=== PATIENT | male | born 1955 | race Caucasian/White ===

== ENCOUNTER 2016-08-21 15:43 | Inpatient (IN) | payer OTHER ==
[~2016-08-21] VITALS: Ht 182.9 cm; Wt 78.8 kg
[~2016-08-21 15:43] MED LIST: GLPZ5T PO; HYDR-4003 PO; LISI-567 PO; METF-496 PO; NICO1PAT5 TOPICAL; TERB30CR15 TOPICAL
[2016-08-21 15:46] VITALS: BP 135/80; PULSE 145; RESP 24; O2SAT 95
--- NOTE | 2016-08-21 16:30 | ED.REPORT ---
HPI-General Illness Date of Service Aug 21, 2016 ED Provider: Doc,Ed MD The patient is a 61 year old male with history of recurrent pneumonia, diabetes mellitus, and COPD, who presents to the emergency department complaining of flu- like symptoms. He has experienced a headache, back pain, fever, myalgias, productive cough. His symptoms have been worsening throughout the day. He took Tylenol at noon today with no relief. He denies abdominal pain, nausea, vomiting or diarrhea. Nursing Notes Stated Complaint: FEVER,DIZZY,SHORT OF BREATH Chief Complaint: FLU/Cold Symptoms Nursing Notes Reviewed: Yes Allergies: Coded Allergies: codeine (Verified Allergy, Severe, Nausea,Vomiting, 08/21/16) Scheduled Glipizide (Glipizide) 5 Mg Tablet 5 NG PO BID Lisinopril (Lisinopril) 20 Mg Tablet 20 MG PO DAILY Metformin ER (Metformin ER) 1,000 Mg Tablet 1,000 MG PO BID Terbinafine Cream (Terbinafine Cream) 30 Gm Cream..g. 1 APPLIC TOPICAL BID apply to upper chest, back, arm pits and forarms Scheduled PRN Hydrocodone-Acetaminophen 5-325 mg (Hydrocodone-Acetaminophen 5-325 mg) 1 Each Tablet 1 TABLET PO Q4H PRN PRN For Moderate Pain General Time Seen by MD: 16:30 Chief Complaint Flu-like illness Hx Obtained From: Patient Arrived By: Walk-in Sudden in Onset?: No Symptom Duration: Since onset Location: : Back: Head Quality: Aching, Painful Radiation: : Does not radiate Severity: Current: Moderate Severity: Maximum: Severe Recent Healthcare: No recent doctor visit, No recent hospitalization Similar Sx Previous: No Past Medical History Past Medical History Multiple episodes of pneumonia Hx of alcohol abuse Alcoholic pancreatitis Diabetes COPD Past Surgical History Cholecystectomy Smoking History Current Every Day Smoker Social History Hx of alcohol abuse, sober now Alcohol Use: In recovery Drug Use: Denies drug use Other Social History: Local resident Occupation lives with roommate Ambulatory Status Independent Review of Systems Full Review of Systems Constitutional: Reports: Chills, Fever Respiratory: Reports: Prod cough, clear GI: Denies: Abdominal pain, Diarrhea, Nausea, Vomiting Musculoskeletal: Reports: Back pain, Myalgia Complete sys rev & neg: except as marked. Physical Exam Vital Signs Vital Signs Date Time Temp Pulse Resp B/P Pulse Ox O2 Delivery O2 Flow Rate FiO2 08/21/16 18:03 38.1 121 24 129/70 95 Room Air 08/21/16 15:46 38.6 145 24 135/80 95 Room Air Initial VS: Reviewed Head / Eyes: Atraumatic, Normocephalic, PERRL ENT: Mucous membranes moist, Conjunctiva normal, No scleral icterus Neck: Supple, Non-tender, Full range of motion Cardiovascular: Regular rate & rhythm, Heart sounds normal, Intact distal pulses Abdomen / GI: Soft, Non-tender, No guarding, No rebound, No distention Extremities: Vascular intact, Neuro intact, No swelling, No tenderness Skin: Warm, Dry, No cyanosis Neurologic: Alert, Oriented, Nonfocal Psychiatric: Mood/affect normal, Behavior normal, Normal thought content General/Constitutional: Awake, Alert Distress / Hydration: Positive: Distress moderate Appearance / Presentation: Positive: Ill appearing/not toxic Neck: Supple, No meningismus, Full range of motion, No swelling, Non-tender, No masses Respiratory / Chest: Atraumatic, Breath sounds NL, Breath sounds = bilat, No respiratory distress, No rales, No rhonchi, No wheezing Interpretation & Diagnostics Lab Results Interpretation Result Diagram: 08/21/16 1707 08/21/16 1707 Test 08/21/16 17:07 08/21/16 17:51 White Blood Count 17.6th/mm3 (3.8-10.1) Red Blood Count 4.42mil/mm3 (4.40-5.80) Hemoglobin 14.5g/dL (13.8-17.2) Hematocrit 41.6% (41.0-50.0) Mean Corpuscular Volume 94.1fL (81-100) Mean Corpuscular Hemoglobin 32.8pg (27.0-35.0) Mean Corpuscular Hemoglobin Concent 34.9% (32.0-37.0) Red Cell Distribution Width 13.0% (12.3-15.4) Platelet Count 169bil/L (150-400) Neutrophils (%) (Auto) 87.4% (40-74) Lymphocytes (%) (Auto) 4.7% (14-46) Monocytes (%) (Auto) 7.4% (4-12) Eosinophils (%) (Auto) 0.1% (0-5) Basophils (%) (Auto) 0.1% (0-3) Sodium Level 134mEq/L (134-144) Potassium Level 4.0mEq/L (3.5-5.2) Chloride Level 97mEq/L (97-108) Carbon Dioxide Level 21mmol/L (18-29) Blood Urea Nitrogen 14mg/dL (8-27) Creatinine 0.64mg/dL (0.76-1.27) Estimat Glomerular Filtration Rate 134mL/min (>59) Glucose Level 109mg/dL (60-99) Lactic Acid Level 1.0mmol/L (0.4-2.0) Calcium Level 8.8mg/dL (8.5-10.1) Magnesium Level 1.7mg/dL (1.6-2.6) Total Bilirubin 0.3mg/dL (0.0-1.2) Aspartate Amino Transf (AST/SGOT) 23U/L (0-50) Alanine Aminotransferase (ALT/SGPT) 12U/L (0-44) Alkaline Phosphatase 53U/L (25-160) Troponin T < 0.010ug/L (0.0-0.011) Total Protein 6.6g/dL (6.4-8.4) Albumin 4.2g/dL (3.4-5.0) Procalcitonin 0.15ng/mL (0.00-0.08) Acetaminophen Level < 15.0ug/mL Rx (10-25) Urine Color Yellow (YELLOW) Urine Appearance Clear (CLEAR,HAZY) Urine pH 5.5 (5.0-8.0) Urine Specific [place] 1.025 (1.003-1.035) Urine Protein Negativemg/dL (NEG,TRACE) Urine Glucose (UA) Negativemg/dL (NEGATIVE) Urine Ketones 15mg/dL (NEGATIVE) Urine Occult Blood Trace (NEGATIVE) Urine Nitrite Negative (NEGATIVE) Urine Bilirubin Negative (NEGATIVE) Urine Urobilinogen Normalmg/dL (NORMAL) Urine Leukocyte Esterase Negative (NEGATIVE) Urine RBC 0-2/hpf (0-2) Urine WBC 0-5/hpf (0-5) Urine Epithelial Cells Few/hpf (NONE-MOD) Urine Crystals None seen (NONE SEEN) Urine Bacteria Few/hpf (NONE-FEW) Urine Hyaline Casts None/lpf (NONE) Urine Granular Casts None seen (NONE SEEN) Urine Waxy Casts None seen (NONE SEEN) Urine Red Blood Cell Casts None seen (NONE SEEN) Urine White Blood Cell Casts None seen (NONE SEEN) Urine Mucus Present (None Seen) Urine Trichomonas None seen (NONE SEEN) Urine Yeast None (NONE SEEN) Urinalysis Comment None Urine Culture Reflexed Not indicated Urine Legionella pneumophilia Ag Negative (Negative) ECG Interpretation ECG Interpretation: Sinus tachycardia with a PAC Rate of 130 Time: 17:11 Interpreted by: ED physician X-Ray Chest Interpretation Chest Xray Interpretation: IMPRESSION: Small left lower lobe pneumonia. Dictated by: Savage Melo M.D. on 08/21/2016 at 17:53 Interpretation / Wet Read by: Interpret - Radiologist Re-Eval/Medical Decision Med Decision/Clinical Course Community-acquired pneumonia with sepsis. Will be admitted. Source of Hx: Old records Time of Eval: 18:04 Re-Evaluation/Progress Note: Rechecked the patient. Discussed plan for admission. All questions were addressed. Consultation : Referral / Consult Name: Karina Lubin MD Consulted With: Hospitalist Requested Call at: 18:05 Call Returned at: 18:39 Brick Setter: Will see patient, Agrees with eval, Agrees with plan, Accepts admit Counseled Regarding: Diagnosis, Lab results, Need for admission Discharge & Departure Primary Impression: Sepsis Sepsis type: sepsis due to unspecified organism Qualified Code: A41.9 - Sepsis, unspecified organism Additional Impression: Pneumonia Pneumonia type: due to unspecified organism Laterality: left Lung location : lower lobe of lung Qualified Code: J18.9 - Pneumonia, unspecified organism Disposition: ADMITTED TO HOSPITAL Discharge Condition All VS Reviewed: Yes Condition: Stable Referrals: NOPCP (PCP) Dionneibluís Attestation Portions of this note were transcribed by Shelly Galloway. I, Dr. Zmaudio personally performed the history, physical exam and medical decision-making; I reviewed and confirmed the accuracy of the information in the transcribed note. Signed by: Eren Lanier, 08/21/2016 and 1845. Meño Zamudio DO Aug 21, 2016 16:30 Shelly Galloway Aug 21, 2016 16:38
[2016-08-21] MEDS ORDERED: 0.9% Sodium Chloride 1,000 ML IV ONE ×2 (16:39→16:40)
[2016-08-21] MEDS ORDERED: Ketorolac 15 mg/mL Inj IVPUSH ONE (16:40)
[2016-08-21] MEDS ORDERED: Promethazine Inj 25 MG in Dextrose 5%-Pha MIX 50 ML IV ONE (16:40)
[2016-08-21 17:21] LABS: BASOPHILS % (AUTO) 0.1 % (0-3); EOSINOPHILS % (AUTO) 0.1 % (0-5); MONOCYTES % (AUTO) 7.4 % (4-12); Mean Corpuscular Hemoglobin 32.8 pg (27.0-35.0); Mean Corpuscular Volume 94.1 fL (81-100); NEUTROPHILS % (AUTO) 87.4 % (40-74); Platelet Count 169 bil/L (150-400)
[2016-08-21 17:55] LABS: TROPONIN T < 0.010 ug/L (0.0-0.011)
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
[2016-08-21 18:01] LABS: Magnesium 1.7 mg/dL (1.6-2.6)
[2016-08-21 18:03] VITALS: BP 129/70; PULSE 121; RESP 24; O2SAT 95
[2016-08-21 18:03] LABS: APPEARANCE,URINE CLEAR (CLEAR,HAZY); COLOR,URINE YELLOW (YELLOW); OCCULT BLOOD,URINE TRACE (NEGATIVE); PH,URINE 5.5 (5.0-8.0); UROBILINOGEN,URINE NORMAL (NORMAL)
[2016-08-21] MEDS ORDERED: 0.9% Sodium Chloride 500 ML IV ONE (18:05)
[2016-08-21] MEDS ORDERED: 0.9% Sodium Chloride 1,000 ML IV SCH ×3 (18:05→20:13)
[2016-08-21] MEDS ORDERED: Azithromycin Inj 500 MG in Dextrose 5% w/Vial Mate 250 ML IV ONE (18:05)
[2016-08-21] MEDS ORDERED: cefTRIAXone Inj 2,000 MG in Dextrose 5% Minibag Plus 50 ML IV ONE (18:05)
[2016-08-21] MEDS ORDERED: Alum-Mag Hydrox-Simeth 30 mL Suspension PO PRN (18:45)
[2016-08-21] MEDS ORDERED: Ondansetron 2 mg/mL 2 mL Inj IVPUSH PRN (18:45)
[2016-08-21 20:03] VITALS: BP 101/63; PULSE 115; RESP 18; O2SAT 92
--- NOTE | 2016-08-21 20:13 | PCM.HPMED ---
Subjective Date of Service Aug 21, 2016 Primary Provider: Admitting Physician: Karina Lubin MD Primary Care Physician: Nopcp Attending Physician: Karina Lubin MD Chief Complaint: myalgia cough HISTORY was OBTAINED FROM PATIENT / MEDITECH NOTES History of present illness 61-year-old male, headache/diffuse muscle ache/fever/dizziness/non-productive cough started 2-3 days ago. Tylenol at home. No vomiting/nausea no diarrhea. currently really cold and fatigued. In ER weight 80.5 pounds, 38.6, heart rate sinus 145, 135/80, 95% on room air, normal saline 2 L, azithromycin Rocephin ketorolac promethazine Review of Systems - none of the following - sick contact / wt change/ / cp / acid reflux / n/v/diarrhea / bleeding/bruising / leg swelling / change in voiding // rash ambulates FAMILY HX DM SOCIAL HX tobacco use-chewing ongoing, indicates stopped smoking 1-2ppd months ago, alcohol abuse history MEDICATIONS Glipizide (Glipizide) 5 Mg Tablet 5 NG PO BID Lisinopril (Lisinopril) 20 Mg Tablet 20 MG PO DAILY Metformin ER (Metformin ER) 1,000 Mg Tablet 1,000 MG PO BID Terbinafine Cream (Terbinafine Cream) 30 Gm Cream..g. 1 APPLIC TOPICAL BID apply to upper chest, back, arm pits and forarms Scheduled PRN Hydrocodone-Acetaminophen 5-325 mg (Hydrocodone-Acetaminophen 5-325 mg) 1 Each Tablet 1 TABLET PO Q4H PRN PRN For Moderate Pain Nicotine 14 mg/24 hr Patch (Nicotine 14 mg/24 hr Patch) 1 Each Patch.td24 1 PATCH TOPICAL DAILY PRN PRN For Tobacco Withdrawal Past Medical/Surgical HX CAP multiple, treated with Levaquin last inpatient service 11/2015 COPD Sinus congestion Diabetes type II Hypertension Alcoholic pancreatitis Allergies Coded Allergies: codeine (Verified Allergy, Severe, Nausea,Vomiting, 08/21/16) PMH Social History Hx Alcohol Use: No Hx Substance Use: No Hx Tobacco Use: Yes (he has a long history of smoking one to 2 packs a day for 40 years) Smoking Status: Current Every Day Smoker Exam Vital Signs Vital Sign - Last Date Time Temp Pulse Resp B/P Pulse Ox O2 Delivery O2 Flow Rate FiO2 2/16/17 19:37 38.1 121 24 129/70 95 Room Air Lab and Diagnostics Labs Exam on admission room air NAD easily awakened fatigued mood affect WNL shivering NC/AT no icterus no injected eyes EOMI PERRL /no pharyngeal lesions/ no oral lesions / hearing intact/ no bilateral max-frontal sinus tenderness Supple neck left wheeze, right diminished equal chest rise / no accessory muscle use / speaks in full sentences / no rrw RRR S1 S2 / no mrg / 2+ radial pulses Soft nt nd + BS no hepatosplenomegaly No edema no cyanosis no ecchymosis of lower extremities No rash / no jaundice MATOS symmetrical facies EKG [address] sinus tach PAC no ST chnages Trop 0.01 at 5 PM PCR respiratory influenza B positive Blood culture pending Strep legionnaires pending Left shift 87.4% procalcitonin 0.15 lactic acid normal UA negative nitrite negative leukocyte esterase negative yeast Tylenol levels undetectable LFT normal Imaging Chest Xray Interpretation: IMPRESSION: Small left lower lobe pneumonia. Result Diagram: 08/21/167 08/21/16 1707 Assessment & Plan Active issues and reason for admission Sepsis due to influenzaB, treating as secondary infection community-acquired Left lower lobe pneumonia, with sinus tachycardia/fever/leukocytosis/myalgia -- tamiflu Rocephin azithromycin DuoNeb's oxygen when necessary / IVF -- pending strep urine, legionnaire's urine, blood culture, sputum culture Chronic issues known prior to admission, present on admission CAP multiple, treated with Levaquin last inpatient service 11/2015 COPD Sinus congestion Diabetes type II Hypertension Alcoholic pancreatitis DM --hold home oral DM meds, SSI --nicotine patch --ocean spray prn Diet DM DVT prophylaxis lovenox scd ambulate Code full Disposition inpt Assessment and plan were discussed with patient Karina Lubin MD Aug 21, 2016 20:13
[2016-08-21] MEDS ORDERED: Albuterol 2.5 mg/3 mL Inhalation Solution NEB PRN (20:15)
[2016-08-21] MEDS ORDERED: Glucose 40% Oral Gel 15 Gm Tube PO PRN (20:15)
[2016-08-21] MEDS: Albuterol 2.5 mg/3 mL Inhalation Solution NEB SCH (20:30)
--- NOTE | 2016-08-21 20:55 | NUR ---
Admission Pt is has a bad OROURKE. Called MD for pain medication. Received orders. Afebrile. Ate dinner. Up OOB without assistance to void. SKin intact. Lungs are clear to decreased with scattered rhonchi. Telemetry in place. Sinus tach 112BPM Oriented to room/call light Care ongoing
[2016-08-21 21:00] VITALS: PULSE 110; RESP 20; O2SAT 93
[2016-08-21] MEDS: Insulin LISPRO 300 Unit/3 mL Inj SUBQ SCH (22:00)
[2016-08-21 22:47] VITALS: BP 144/80; PULSE 130; RESP 28; O2SAT 91
[2016-08-21] MEDS: 0.9% Sodium Chloride 1,000 ML IV SCH (23:10)
[2016-08-22] VITALS (12 sets, daily range): BP systolic 107–138; BP diastolic 59–73; PULSE 96–125; RESP 17–26; O2SAT 93–96
--- NOTE | 2016-08-22 00:07 | NUR ---
MED REC NOT COMPLETE Pt takes lantus. He does not state a PCP. He does not state a pharmacy where he has this fills. Please follow up in the AM. Home Lantus pen is in the pharmacy.
[2016-08-22] MEDS: Albuterol 2.5 mg/3 mL Inhalation Solution NEB SCH ×6 (00:30→19:59)
--- NOTE | 2016-08-22 00:46 | NUR ---
Respiratory Pt is refusing treatments stating that he just want to sleep. will attempt again in the morning
[2016-08-22] MEDS: HYDROcodone-APAP 5-325 mg Tablet PO PRN ×4 (03:09→19:43)
[2016-08-22 06:31] LABS: BASOPHILS % (AUTO) 0.1 % (0-3); EOSINOPHILS % (AUTO) 0 % (0-5); Mean Corpuscular Hemoglobin 32.3 pg (27.0-35.0); Mean Corpuscular Volume 96.3 fL (81-100)
[2016-08-22 06:38] LABS: MONOCYTES % (AUTO) 3.5 % (4-12); NEUTROPHILS % (AUTO) 85.1 % (40-74); Platelet Count 156 bil/L (150-400)
[2016-08-22 06:46] LABS: Magnesium 1.9 mg/dL (1.6-2.6)
[2016-08-22] MEDS ORDERED: IPRA4AER PO (07:17)
[2016-08-22] MEDS ORDERED: INSU100I13 SUBQ (07:17)
[2016-08-22] MEDS: cefTRIAXone Inj 2,000 MG in Dextrose 5% Minibag Plus 50 ML IV SCH (08:10)
[2016-08-22] MEDS: Insulin LISPRO 300 Unit/3 mL Inj SUBQ SCH (08:18)
[2016-08-22] MEDS: 0.9% Sodium Chloride 1,000 ML IV SCH ×2 (09:10→19:42)
--- NOTE | 2016-08-22 10:38 | NUR ---
Social Work: Screening Data: Pt is a 61 y/o male admitted for sepsis, pneumonia. Pt's PCP is not listed, pt's insurance is coordinated care. EMR reviewed. Readmit score not listed. No d/c planning needs at this time. RESEARCH PROGRAM MANAGER will continue to follow if needs arise. Assessment: Pt who is independent at baseline. Plan: Pt will d/c home via POV when medically stable. No d/c planning needs at this time. RESEARCH PROGRAM MANAGER will continue to follow if needs arise. JENNIFER Delacruz
--- NOTE | 2016-08-22 18:01 | PCM.PNMED ---
Subjective Date of Service Aug 22, 2016 Subjective 61-year-old male with diabetes, hypertension, COPD, and multiple prior community -acquired pneumonia presents with headache/diffuse muscle ache/fever/dizziness/ non-productive cough started 2-3 days ago. He is found to have influenza B, a left lower lobe pneumonia and was septic on admission. Patient admitted overnight, no acute events. This morning he states that he had generally feeling unwell, he is coughing but not bringing much up. He is having a headache and mild shortness of breath, no chest pain outside of coughing, no abdominal pain. Exam Vital Signs Vital Sign - Last Date Time Temp Pulse Resp B/P Pulse Ox O2 Delivery O2 Flow Rate FiO2 08/22/16 17:16 36.9 109 18 138/67 95 Room Air Intake and Output 08/21/16 08/21/16 08/22/16 Cumulative From/Thru 15:00 23:00 07:00 08/21/16 15:46 - 08/22/16 06:08 Intake Total 999 ml 1061 ml 2060 ml Output Total 500 ml 500 ml Balance 999 ml 561 ml 1560 ml Intake Oral 200 ml 200 ml IV Total 999 ml 861 ml 1860 ml Output Urine Total 500 ml 500 ml # Bowel Movements 0 0 Exam General: No acute distress, well-developed, well-nourished, appropriately interactive HEENT: Normocephalic, atraumatic. External ears without defect. Pupils equal, round, and reactive to light and accommodation. Anicteric sclerae, moist conjunctivae, prominent upper eyelid. Oropharynx free of erythema with moist mucosa. Neck: Supple with full range of motion. No jugular venous distension. No lymphadenopathy or thyromegaly. Cardiovascular: Regular rate and rhythm with no murmurs, rubs, or gallops appreciated Pulmonary: Diffuse wheezes and crackles bilaterally, more prominent at the bases. Normal respiratory effort with no use of accessory muscles. Abdomen: Bowel tones present. Soft, nontender, nondistended. No hepatosplenomegaly or masses appreciated. Extremities: No clubbing, cyanosis, edema, or lymphadenopathy appreciated. Skin: Normal temperature, turgor, and texture; no rash, ulcers, or subcutaneous nodules appreciated. Neurological: Cranial nerves grossly intact. Normal muscle strength, tone, and bulk. No known gait impairment. Psychiatric: Normal mood and affect. Alert and oriented to person, place, and time. IVs and Medications IV Fluids 100 mL/ hour of NS Lab and Diagnostics Result Diagram: 08/22/1660908/22/16609 X-Rays, CTs and MRIs X-RAY CHEST, TWO VIEWS ([id number]) IMPRESSION: Small left lower lobe pneumonia. Dictated by: Savage Melo M.D. on 08/21/2016 at 17:53 Assessment & Plan 61-year-old male with diabetes, hypertension, COPD, and multiple prior community -acquired pneumonia presents with headache/diffuse muscle ache/fever/dizziness/ non-productive cough started 2-3 days ago. He is found to have influenza B, a left lower lobe pneumonia and was septic on admission. Hospital day 2 1. Sepsis due to community-acquired Left lower lobe pneumonia, present on admission, active -- On admission patient tachycardic up to 145 with a respiratory rate of 24, and WBC 17.6 -- The left lower lobe pneumonia identified on chest x-ray -- Patient treated with IV fluids, continuing normal saline at a rate of 100 mL/ h -- Broad-spectrum antibiotics initiated, IV Rocephin and azithromycin. -- Urine strep and Legionella negative -- blood and sputum cultures pending 2. Influenza B, present on admission, active -- Patient placed in isolation -- Tamiflu -- DuoNebs, oxygen when necessary 3. Left lower lobe pneumonia, present on admission, active -- Treated with above antibiotics -- Propulsid tone and in the morning, if this remains low we can likely discontinue antibiotics as patient's symptoms might be more related to the flu than the pneumonia. Chronic issues known prior to admission, present on admission CAP multiple, treated with Levaquin last inpatient service 11/2015. Patient has worked and migraines, around concrete dust, and has been a journeyman painter in the past COPD Sinus congestion --ocean spray prn Diabetes type II -- Restart home diabetes regimen with Lantus at a slightly lower dose of 15 and 20 units in the evening. Continue glipizide and metformin twice daily Hypertension Alcoholic pancreatitis Tobacco use --nicotine patch Diet DM DVT prophylaxis lovenox scd ambulate Code full Disposition inpt Pain Evaluation: Adequate Pain Control GI Prophylaxis: Not indicated VTE Prophylaxis: Sub-Q Enoxaparin Resuscitation Status: CPR: Attempt Resuscitation Attending Statement The patient was seen and examined together with Dr. Nolan on 08-22-16 and I agree with the history, exam and plan as outlined in the note above. Nita Nolan DO Aug 22, 2016 18:01 Eda Villaseñor MD Aug 23, 2016 07:58
[2016-08-22] MEDS: metFORMIN ER 500 mg ER24 Tablet PO SCH (18:38)
[2016-08-22] MEDS: guaiFENesin 600 mg ER12 Tablet PO SCH (19:43)
[2016-08-22] MEDS: Insulin GLARgine 100 Unit/mL Syringe SUBQ SCH (19:56)
[2016-08-22] MEDS: Azithromycin Inj 500 MG in Dextrose 5% w/Vial Mate 250 ML IV SCH (19:57)
[2016-08-22] MEDS: Insulin LISPRO Low-Dose Scale SUBQ PRN (19:57)
[2016-08-23] VITALS (13 sets, daily range): BP systolic 120–146; BP diastolic 61–77; PULSE 73–111; RESP 18–20; O2SAT 92–99
[2016-08-23] MEDS: Albuterol 2.5 mg/3 mL Inhalation Solution NEB SCH ×6 (00:34→20:12)
[2016-08-23] MEDS: HYDROcodone-APAP 5-325 mg Tablet PO PRN ×5 (02:23→20:57)
[2016-08-23] MEDS: 0.9% Sodium Chloride 1,000 ML IV SCH (06:33)
[2016-08-23 07:49] LABS: BASOPHILS % (AUTO) 0.2 % (0-3); EOSINOPHILS % (AUTO) 0.1 % (0-5); MONOCYTES % (AUTO) 4.8 % (4-12); Mean Corpuscular Hemoglobin 32.8 pg (27.0-35.0); Mean Corpuscular Volume 96.5 fL (81-100); Platelet Count 148 bil/L (150-400)
[2016-08-23] MEDS: cefTRIAXone Inj 2,000 MG in Dextrose 5% Minibag Plus 50 ML IV SCH (08:16)
[2016-08-23] MEDS: guaiFENesin 600 mg ER12 Tablet PO SCH ×2 (08:17→21:02)
[2016-08-23] MEDS: metFORMIN ER 500 mg ER24 Tablet PO SCH ×2 (08:17→17:03)
--- NOTE | 2016-08-23 11:54 | NUR ---
Pain: Patient complained of OROURKE and chest pain from cough 6/10 on pain scale. [place] and oxycodone administered per patient request. Will continue to monitor pain level.
--- NOTE | 2016-08-23 17:22 | NUR ---
Activity: Patient ambulated in hallway. Denies shortness of breath, dizzy or lightheadedness.
--- NOTE | 2016-08-23 19:03 | PCM.PNMED ---
Subjective Date of Service Aug 23, 2016 Subjective 61-year-old male with diabetes, hypertension, COPD, and multiple prior community -acquired pneumonia presents with headache/diffuse muscle ache/fever/dizziness/ non-productive cough started 2-3 days ago. He is found to have influenza B, a left lower lobe pneumonia and was septic on admission. Patient did well overnight with no acute events. This morning he reports feeling better. He is still having some shortness of breath but it is improved. He is coughing some and finally able to get some phlegm up. He is taking pain medication that is helping with his headache as well. No abdominal pain, chest pain. Exam Vital Signs Vital Sign - Last Date Time Temp Pulse Resp B/P Pulse Ox O2 Delivery O2 Flow Rate FiO2 08/23/16 06:06 111 08/23/16 05:26 37.1 18 120/61 94 Room Air Intake and Output 08/22/16 08/22/16 08/23/16 Cumulative From/Thru 15:00 23:00 07:00 08/21/16 15:46 - 08/23/16 06:36 Intake Total 2265 ml 1769 ml 6094 ml Output Total 1625 ml 1575 ml 3700 ml Balance 640 ml 194 ml 2394 ml Intake Oral 1040 ml 420 ml 1660 ml IV Total 1225 ml 1349 ml 4434 ml Output Urine Total 1625 ml 1575 ml 3700 ml # Bowel Movements 0 0 0 Exam General: No acute distress, well-developed, well-nourished, appropriately interactive HEENT: Normocephalic, atraumatic. External ears without defect. Pupils equal, round, and reactive to light and accommodation. Anicteric sclerae, moist conjunctivae, prominent upper eyelid. Oropharynx free of erythema with moist mucosa. Neck: Supple with full range of motion. No jugular venous distension. No lymphadenopathy or thyromegaly. Cardiovascular: Regular rate and rhythm with no murmurs, rubs, or gallops appreciated Pulmonary: Diffuse crackles at the bases bilaterally, more prominent on the left. Normal respiratory effort with no use of accessory muscles. Abdomen: Bowel tones present. Soft, nontender, nondistended. No hepatosplenomegaly or masses appreciated. Extremities: No clubbing, cyanosis, edema, or lymphadenopathy appreciated. Skin: Normal temperature, turgor, and texture; no rash, ulcers, or subcutaneous nodules appreciated. Neurological: Cranial nerves grossly intact. Normal muscle strength, tone, and bulk. No known gait impairment. Psychiatric: Normal mood and affect. Alert and oriented to person, place, and time. Lab and Diagnostics Result Diagram: 08/22/1660908/22/16 0610 X-Rays, CTs and MRIs X-RAY CHEST, TWO VIEWS ([id number]) IMPRESSION: Small left lower lobe pneumonia. Dictated by: Savage Melo M.D. on 08/21/2016 at 17:53 Assessment & Plan 61-year-old male with diabetes, hypertension, COPD, and multiple prior community -acquired pneumonia presents with headache/diffuse muscle ache/fever/dizziness/ non-productive cough started 2-3 days ago. He is found to have influenza B, a left lower lobe pneumonia and was septic on admission. Hospital day 3 1. Sepsis due to community-acquired Left lower lobe pneumonia and influenza B, present on admission, active -- On admission patient tachycardic up to 145 with a respiratory rate of 24, and WBC 17.6 -- The left lower lobe pneumonia identified on chest x-ray -- Patient treated with IV fluids, discontinued today -- Broad-spectrum antibiotics initiated, IV Rocephin and azithromycin. -- Urine strep and Legionella negative -- blood cultures show no growth after 2 days -- sputum culture shows light normal aniceto 2. Influenza B, present on admission, active -- Patient placed in isolation -- Tamiflu 3. Left lower lobe pneumonia, present on admission, active -- Treated with above antibiotics -- DuoNebs, oxygen when necessary -- Again, Procalcitonin in the morning, if this remains low we can likely discontinue antibiotics as patient's symptoms might be more related to the flu than the pneumonia. -- Chest x-ray in the morning Chronic issues known prior to admission, present on admission CAP multiple, treated with Levaquin last inpatient service 11/2015. 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 Continue glipizide and metformin twice daily Hypertension Alcoholic pancreatitis Tobacco use -- nicotine patch -- Patient counseled on importance to quit smoking, he verbalizes understanding that it will be important to his overall lung health Diet DM DVT prophylaxis lovenox scd ambulate Code full Disposition inpt GI Prophylaxis: Not indicated VTE Prophylaxis: Sub-Q Enoxaparin Resuscitation Status: CPR: Attempt Resuscitation Attending Statement The patient was seen and examined together with Dr. Nolan on 08-23-16 and I agree with the history, exam and plan as outlined in the note above. Nita Nolan DO Aug 23, 2016 07:23 Eda Villaseñor MD Aug 24, 2016 16:42
[2016-08-23] MEDS: Insulin GLARgine 100 Unit/mL Syringe SUBQ SCH (20:57)
[2016-08-23] MEDS: Azithromycin Inj 500 MG in Dextrose 5% w/Vial Mate 250 ML IV SCH (20:58)
[2016-08-24] MEDS: Albuterol 2.5 mg/3 mL Inhalation Solution NEB SCH ×3 (00:30→07:38)
[2016-08-24 05:42] VITALS: BP 128/85; PULSE 111; RESP 18; O2SAT 96
[2016-08-24] MEDS: HYDROcodone-APAP 5-325 mg Tablet PO PRN (05:46)
[2016-08-24 07:17] LABS: BASOPHILS % (AUTO) 0.2 % (0-3); EOSINOPHILS % (AUTO) 1.3 % (0-5); MONOCYTES % (AUTO) 8.3 % (4-12); Mean Corpuscular Hemoglobin 32.7 pg (27.0-35.0); Mean Corpuscular Volume 94.6 fL (81-100); Platelet Count 167 bil/L (150-400)
[2016-08-24 07:38] VITALS: PULSE 93; RESP 20; O2SAT 92
[2016-08-24] MEDS: metFORMIN ER 500 mg ER24 Tablet PO SCH (08:23)
[2016-08-24] MEDS: guaiFENesin 600 mg ER12 Tablet PO SCH (08:24)
[2016-08-24] MEDS: Insulin LISPRO Low-Dose Scale SUBQ PRN (08:29)
[2016-08-24] MEDS: cefTRIAXone Inj 2,000 MG in Dextrose 5% Minibag Plus 50 ML IV SCH (08:31)
--- NOTE | 2016-08-24 10:39 | PCM.DIMED ---
Kraol Huber DO 08/24/16 1039: Discharge Instructions Date of Service Aug 24, 2016 Dates of Hospitalization Aug 21, 2016 at 18:53 Discharge Diagnosis Discharge Diagnosis Sepsis due to community-acquired left lower lobe pneumonia and influenza B, present on admission. Resolved. Influenza B, present on admission. Treating. Left lower lobe pneumonia, present on admission. Treating. Chronic obstructive pulmonary disease. Stable. Diabetes mellitus type II, insulin using. Stable. Hypertension, chronic. Stable. Tobacco use disorder, chronic. Stable. . Medication Instructions New medications: Tamiflu 75 mg twice a day 2 days. Amoxicillin 500 mg 3 times a day 2 days. Hydrocodone 5-325 mg every 4 hours as needed for headache. Continued medications: Albuterol inhaler 1-2 puffs every 4 hours as needed for shortness of breath. Glipizide 5 mg twice a day. Lantus 20 units subcutaneous daily at bedtime. Lisinopril 20 mg daily. Metformin 1000 mg twice a day. Terbinafine cream apply topically twice a day for tinea versicolor. . Diet Heart Healthy, Diabetic Call your provider Fever or Chills, Shortness of breath, Vomitting, Excessive diarrhea Patient Instructions Follow-up plan Please follow-up at the [facility], [place], operated by [facility] with your primary care physician, Dr. Heard, in the next 1-2 weeks regarding your recent hospitalization for influenza infection and pneumonia. You may need a repeat chest x-ray in 6 weeks at the discretion of your primary care physician to make sure that your pneumonia has resolved. . [facility]up Provider: [facility] Follow-up with PCP in: 1 week Eda Villaseñor MD 08/25/16 0851: Discharge Instructions Attending's Statement The patient was seen and examined together with Dr. Huber on 08-24-16 and I agree with the history, exam and plan as outlined in the note above. Karol Huber DO Aug 24, 2016 10:39 Eda Villaseñor MD Aug 25, 2016 08:51
[2016-08-24] MEDS ORDERED: OSLT75C PO (10:44)
[2016-08-24] MEDS ORDERED: AMOX500C2 PO (10:49)
[2016-08-24] MEDS ORDERED: HYDR-4003 PO (10:59)
--- NOTE | 2016-08-24 11:52 | NUR ---
Discharge IV discontinued fully intact. Discharge instructions explained to patient who verbalizes understanding and agrees to plan of care. All personal belongings given to patient. Patient ambulated off of unit with friend.
--- NOTE | 2016-08-24 13:07 | PCM.DC.MED ---
Discharge Summary Date of Service Aug 24, 2016 Dates of Hospitalization Date of Hospital Admission Aug 21, 2016 at 18:53 Date of Discharge: Aug 24, 2016 Providers: Admitting Physician: Karina Lubin MD Primary Care Physician: Mj Attending Physician: Karina Lubin MD Diagnosis at Time of Discharge Diagnosis at Time of Discharge Sepsis due to community-acquired left lower lobe pneumonia and influenza B, present on admission. Resolved. Influenza B, present on admission. Treating. Left lower lobe pneumonia, present on admission. Treating. Chronic obstructive pulmonary disease. Stable. Diabetes mellitus type II, insulin using. Stable. Hypertension, chronic. Stable. Tobacco use disorder, chronic. Stable. . Procedures XRay, CTs & MRIs X-RAY CHEST, TWO VIEWS IMPRESSION: Small left lower lobe pneumonia. Dictated by: Savage Melo M.D. on 08/21/2016 at 17:53 . Brief History History of present illness per Dr. Lubin on 08/24/2016: HISTORY was OBTAINED FROM PATIENT / [employer] NOTES 61-year-old male, headache/diffuse muscle ache/fever/dizziness/non-productive cough started 2-3 days ago. Tylenol at home. No vomiting/nausea no diarrhea. currently really cold and fatigued. In ER weight 80.5 pounds, 38.6, heart rate sinus 145, 135/80, 95% on room air, normal saline 2 L, azithromycin Rocephin ketorolac promethazine Review of Systems - none of the following - sick contact / wt change/ / cp / acid reflux / n/v/diarrhea / bleeding/bruising / leg swelling / change in voiding // rash ambulates . Hospital Course Corona Lorenz is a 61-year-old male with diabetes, hypertension, COPD, and multiple prior community-acquired pneumonia presents with headache/diffuse muscle ache/fever/dizziness/non-productive cough started 2-3 days ago. He is found to have influenza B, a left lower lobe pneumonia and was septic on admission. Hospital day #4. 1. Sepsis due to community-acquired left lower lobe pneumonia and influenza B, present on admission. Resolved. -- On admission patient tachycardic up to 145 with a respiratory rate of 24, and WBC 17.6. -- The left lower lobe pneumonia identified on chest x-ray. -- Patient treated with IV fluids until adequately hydrated. -- Broad-spectrum antibiotics initiated, IV Rocephin and azithromycin. -- Urine strep and Legionella negative. -- Blood cultures show no growth after 2 days. -- sputum culture shows light normal aniceto 2. Influenza B, present on admission. Treating. - Patient placed in isolation - Continued Tamiflu hospitalization. Patient was discharged with Tamiflu 2 days. 3. Left lower lobe pneumonia, present on admission. Treating. - Continued ceftriaxone and azithromycin throughout hospitalization. Patient was discharged with amoxicillin 500 mg 3 times a day 2 days. - Continued DuoNebs throughout hospitalization. - Chest x-ray revealed left lower lobe pneumonia as above. Chronic Problems: Chronic obstructive pulmonary disease. Stable. Diabetes mellitus type II, insulin using. Stable. - Last hemoglobin A1c was 6.2% 11/2015. - Continued home diabetes regimen with Lantus at a slightly lower dose of 15 and 20 units in the evening throughout hospitalization. - Continued glipizide and metformin twice daily. - Continued carbohydrate consistent diet throughout hospitalization. Tobacco use disorder, chronic. Stable. - Nicotine patch available throughout hospitalization for symptoms of nicotine withdrawal. - Patient counseled on importance to quit smoking, he verbalizes understanding that it will be important to his overall lung health and plans to stay abstinent. Hypertension, chronic. Stable. - Not medically treated. . Exam Vital Signs (Last) Date Time Temp Pulse Resp B/P Pulse Ox O2 Delivery O2 Flow Rate FiO2 08/24/16 07:38 93 20 92 Room Air 08/24/16 05:42 37.6 128/85 Exam General: No acute distress, well-developed, well-nourished, appropriately interactive HEENT: Normocephalic, atraumatic. External ears without defect. Pupils equal, round, and reactive to light and accommodation. Anicteric sclerae, moist conjunctivae, prominent upper eyelid. Oropharynx free of erythema with moist mucosa. Neck: Supple with full range of motion. No jugular venous distension. No lymphadenopathy or thyromegaly. Cardiovascular: Regular rate and rhythm with no murmurs, rubs, or gallops appreciated Pulmonary: Rare crackle at left base. Normal respiratory effort with no use of accessory muscles. Abdomen: Soft, nontender, nondistended, bowel tones present. . No hepatosplenomegaly or masses appreciated. Extremities: No clubbing, cyanosis, or edema. Skin: Normal temperature, turgor, and texture; no rash, ulcers, or subcutaneous nodules appreciated. Neurological: Cranial nerves grossly intact. Normal muscle strength, tone, and bulk. No known gait impairment. Psychiatric: Normal mood and affect. Alert and oriented to person, place, and time. . Test 08/21/16 17:07 08/21/16 17:51 08/21/16 21:56 08/22/16 06:10 Lactic Acid Level 1.0mmol/L (0.4-2.0) Troponin T < 0.010ug/L (0.0-0.011) Acetaminophen Level < 15.0ug/mL Rx (10-25) Urine Color Yellow (YELLOW) Urine Appearance Clear (CLEAR,HAZY) Urine pH 5.5 (5.0-8.0) Urine Specific [place] 1.025 (1.003-1.035) Urine Protein Negativemg/dL (NEG,TRACE) Urine Glucose (UA) Negativemg/dL (NEGATIVE) Urine Ketones 15mg/dL (NEGATIVE) Urine Occult Blood Trace (NEGATIVE) Urine Nitrite Negative (NEGATIVE) Urine Bilirubin Negative (NEGATIVE) Urine Urobilinogen Normalmg/dL (NORMAL) Urine Leukocyte Esterase Negative (NEGATIVE) Urine RBC 0-2/hpf (0-2) Urine WBC 0-5/hpf (0-5) Urine Epithelial Cells Few/hpf (NONE-MOD) Urine Crystals None seen (NONE SEEN) Urine Bacteria Few/hpf (NONE-FEW) Urine Hyaline Casts None/lpf (NONE) Urine Granular Casts None seen (NONE SEEN) Urine Waxy Casts None seen (NONE SEEN) Urine Red Blood Cell Casts None seen (NONE SEEN) Urine White Blood Cell Casts None seen (NONE SEEN) Urine Mucus Present (None Seen) Urine Trichomonas None seen (NONE SEEN) Urine Yeast None (NONE SEEN) Urinalysis Comment None Urine Culture Reflexed Not indicated Urine Legionella pneumophilia Ag Negative (Negative) Hold Urine Received (Received) Magnesium Level 1.9mg/dL (1.6-2.6) Test 08/24/16 06:25 White Blood Count 8.3th/mm3 (3.8-10.1) Red Blood Count 3.73mil/mm3 (4.40-5.80) Hemoglobin 12.2g/dL (13.8-17.2) Hematocrit 35.3% (41.0-50.0) Mean Corpuscular Volume 94.6fL (81-100) Mean Corpuscular Hemoglobin 32.7pg (27.0-35.0) Mean Corpuscular Hemoglobin Concent 34.6% (32.0-37.0) Red Cell Distribution Width 12.6% (12.3-15.4) Platelet Count 167bil/L (150-400) Neutrophils (%) (Auto) 74.0% (40-74) Lymphocytes (%) (Auto) 16.0% (14-46) Monocytes (%) (Auto) 8.3% (4-12) Eosinophils (%) (Auto) 1.3% (0-5) Basophils (%) (Auto) 0.2% (0-3) Sodium Level 139mEq/L (134-144) Potassium Level 4.0mEq/L (3.5-5.2) Chloride Level 101mEq/L (97-108) Carbon Dioxide Level 24mmol/L (18-29) Blood Urea Nitrogen 10mg/dL (8-27) Creatinine 0.41mg/dL (0.76-1.27) Estimat Glomerular Filtration Rate 224mL/min (>59) Glucose Level 178mg/dL (60-99) Calcium Level 8.6mg/dL (8.5-10.1) Total Bilirubin 0.3mg/dL (0.0-1.2) Aspartate Amino Transf (AST/SGOT) 13U/L (0-50) Alanine Aminotransferase (ALT/SGPT) 10U/L (0-44) Alkaline Phosphatase 53U/L (25-160) Total Protein 5.9g/dL (6.4-8.4) Albumin 3.5g/dL (3.4-5.0) Procalcitonin 0.14ng/mL (0.00-0.08) Discharge Medications Discharge Medications Amoxicillin (Amoxicillin) 500 Mg Capsule 500 MG PO TID Prescribed by: QIANA GOMES DO Glipizide (Glipizide) 5 Mg Tablet 5 NG PO BID (Reported) Insulin Glargine (Lantus U100 Solostar Insulin Pen) 100 Unit/1 Ml Insuln.pen 20 UNITS SUBQ HS (Reported) Lisinopril (Lisinopril) 20 Mg Tablet 20 MG PO DAILY (Reported) Metformin ER (Metformin ER) 1,000 Mg Tablet 1,000 MG PO BID (Reported) Oseltamivir Phosphate (Tamiflu) 10 Cap/Pkg Capsule 75 MG PO BID Prescribed by: QIANA GOMES DO Terbinafine Cream (Terbinafine Cream) 30 Gm Cream..g. 1 APPLIC TOPICAL BID apply to upper chest, back, arm pits and forarms Prescribed by: MENDOZA ROSS MD As needed Albuterol/Ipratropium (Combivent Respimat Inhal [place]) 120 Spr/4 Gm Inhaler 1-2 PUFFS PO ASDIRECTED PRN PRN For Shortness of Breath (Reported) Hydrocodone-Acetaminophen 5-325 mg (Hydrocodone-Acetaminophen 5-325 mg) 1 Each Tablet 1 TABLET PO Q4H PRN PRN For Pain Prescribed by: QIANA GOMES DO Additional med instructions New medications: Tamiflu 75 mg twice a day 2 days. Amoxicillin 500 mg 3 times a day 2 days. Hydrocodone 5-325 mg every 4 hours as needed for headache. Continued medications: Albuterol inhaler 1-2 puffs every 4 hours as needed for shortness of breath. Glipizide 5 mg twice a day. Lantus 20 units subcutaneous daily at bedtime. Lisinopril 20 mg daily. Metformin 1000 mg twice a day. Terbinafine cream apply topically twice a day for tinea versicolor. . Followup Plan Disposition: Home. . Follow-up plan Please follow-up at the [facility] with your primary care physician, Dr. Heard, in the next 1-2 weeks regarding your recent hospitalization for influenza infection and pneumonia. You may need a repeat chest x-ray in 6 weeks at the discretion of your primary care physician to make sure that your pneumonia has resolved. . Discharge Diet: Heart Healthy, Diabetic Follow-up Provider: [facility] Follow-up with PCP in: 1 week Attending Statement The patient was seen and examined together with Dr. Gomes on 08-24-16 and I agree with the history, exam and plan as outlined in the note above. Qiana Gomes DO Aug 24, 2016 13:07 Eda Villaseñor MD Aug 25, 2016 08:52
--- NOTE | 2016-08-24 13:30 | NUR ---
Social Work: Discharge Data: Pt is on day 3 of hospitalization. EMR reviewed. D/C orders are in. No further d/c planning needed at this time. [employer]DER will continue to follow if needs arise. Assessment: Pt who is independent at baseline. Plan: Pt will d/c home via POV today. No further d/c planning needed at this time. NEED[employer] M[employer]DER will continue to follow if needs arise. JENNIFER Delacruz
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
== END 2016-08-24 11:55 | disposition home or self-care (01) | DRG 720 ==
LOC: SED 15:43 → MPC 18:53
PROVIDERS: ADMIT Urology; ATTEND Urology
DX: A41.9 Sepsis, unspecified organism (principal); J10.00 Influenza due to other identified influenza virus with unspecified type of pneumonia; J44.9 Chronic obstructive pulmonary disease, unspecified; E11.9 Type 2 diabetes mellitus without complications; I10 Essential (primary) hypertension; F17.210 Nicotine dependence, cigarettes, uncomplicated; B97.89 Other viral agents as the cause of diseases classified elsewhere; Z79.4 Long term (current) use of insulin